=== PATIENT | female | born 1960 | race Caucasian/White ===

== ENCOUNTER → 2018-11-03 | Outpatient (CLI) | payer OTHER | LOC: EMCIMAGING 10:10 | PROVIDERS: ATTEND Nurse Practitioner Family | DX: Z12.31 Encounter for screening mammogram for malignant neoplasm of breast (principal); Z13.820 Encounter for screening for osteoporosis; M85.89 Other specified disorders of bone density and structure, multiple sites | CPT/HCPCS: 77067-PN; 77080-PN ==